=== PATIENT | female | born 1970 | race Caucasian/White ===

== ENCOUNTER 2020-01-11 09:22 | Emergency (ER) | payer BC ==
--- OUTSIDE RECORDS SUMMARY | 2020-01-11 09:29 | XMS REPORT | Continuity of Care Document ---
:1970 External Reference #:[id number] Author Name Genaro Fuller NP (transmitted by agent of provider Lotus Arndt) Address [address], [place] [address] Care Team Providers Name Role Phone Winsome Garcia MD - Pain Medicine Care Team Information Mucking Machine Operator [phone] Harika Moody MD - Internal Medicine Care Team Information Mucking Machine Operator [phone] Problems Active Problems Provider Date Migraine Will Hernandez M.D. Onset: 03/12/2017 Asthma Maddy Rivas NP Onset: 08/14/2017 Social History Type Date Description Comments Sex Unknown Tobacco Use Start: Unknown End: Former Cigarette Smoker Unknown Smoking Status Reviewed: 12/30/19 Former Cigarette Smoker ETOH Use Rarely consumes alcohol Tobacco Use Start: Unknown End: Patient is a former smoker Unknown Recreational Drug Use Denies Drug Use Exercise Type/Frequency Exercises sporadically Allergies, Adverse Reactions, Alerts Active Allergies Reaction Severity Comments Date Botox 12/30/2019 Inactive Allergies NKDA 03/12/2017 Medications Active Medications SIG Qnty Indications Ordering Date Provider Emgality inject 2 pens 2Syringe Will Sanabria 12/30/2019 120mg/ml for the first Irma Hernandez Solution Auto-Inject dose than 1 pen monthly (first dose will be 2 ml) Wellbutrin SR take two tablets 60tabs F32.9 Taqueriaofijael Roberts, 01/28/2019 150mg by mouth daily. OPTICAL GOODS DRILL OPERATOR Tablets ER 12HR Zolpidem Tartrate ER one every night 30tabs G47.00 Taqueriaofijael Roberts, 2017 at bedtime as OPTICAL GOODS DRILL OPERATOR 12.5mg Tablets ER needed insomnia Ondansetron 1 by mouth three 60tabs G43.119 Will Marquez. 06/06/2017 8mg Tablets times a day as Irma Hernandez Dispers needed nausea or headache Naproxen 1 twice a day as 60tabs G43.119 Will S. 03/12/2017 500mg Tablets needed for Irma Hernandez headache Clonazepam 1 by mouth twice 60tabs Zsofia Armando, 03/12/2017 0.5mg a day as needed OPTICAL GOODS DRILL OPERATOR Tablets Meclizine HCL 1 tablet every 8 30tabs Zsofia Armando, 25mg hours as needed OPTICAL GOODS DRILL OPERATOR Tablets for vertigo Cetirizine HCL 1 by mouth every Unknown 10mg day Tablets Centrum Silver once daily Unknown 50+Women 50+Women Tablets Progesterone one tablet by Unknown Micronized mouth every 100mg night at bedtime Capsules Estradiol 1 po daily Unknown 2mg Tablets Vitamin D3 Adult 1 every day Unknown Gummies 1000Unit Chewtabs Sertraline HCL 1 by mouth every 30tabs Zsofia Armando, 100mg day OPTICAL GOODS DRILL OPERATOR Tablets Gabapentin 2 tabs by mouth 180tabs Zsofia Armando, 600mg every day at OPTICAL GOODS DRILL OPERATOR Tablets bedtime Ventolin HFA 2 puffs by mouth 18units Zsofia Armando, four times a day OPTICAL GOODS DRILL OPERATOR 108(90Base) mcg/Act as needed Aerosol Advair Diskus 1 puff by mouth 60units Zsofia Armando, twice a day OPTICAL GOODS DRILL OPERATOR 250-50mcg/Dose Aerosol Montelukast Sodium 1 by mouth every 90tabs Zsofia Armando, 10mg day OPTICAL GOODS DRILL OPERATOR Tablets Sumatriptan Succinate take 1/2-1 by 18tabs G43.119 Zsofia Armando, mouth as need OPTICAL GOODS DRILL OPERATOR 100mg Tablets for migraine, may repeat after 2 hours, maximum 2 tablets in 24 hours, maximum 2 days a week. History Medications Emgality inject 2 pens 2Syringe G43.009 Will Sanabria 12/30/2019 - 120mg/ml for the first Irma Hernandez 12/30/2019 Solution dose than 1 pen Auto-Inject monthly (first dose will be 2 ml) Immunizations CPT Code Status Date Vaccine Reaction Lot # [id number] Given 01/28/2019 Tdap - shot tolerated well, no [id number] Tetanus/Diptheria/Acellular immediate reaction Pertussis [id number] Given 07/09/2018 Influenza Virus Vaccine, Quadrivalent, Split, Preservative Free Vital Signs Date Vital Result Comment 12/30/2019 10:06am Height 64 inches 5'4" Weight 178.00 lb Heart Rate 72 /min BP Systolic 142 mmHg BP Diastolic 84 mmHg BMI (Body Mass Index) 30.6 kg/m2 08/25/2019 8:56am Height 64 inches 5'4" Weight 178.25 lb Heart Rate 61 /min BP Systolic 123 mmHg BP Diastolic 76 mmHg Body Temperature 98.1 F O2 % BldC Oximetry 98 % BMI (Body Mass Index) 30.6 kg/m2 Results Test Acquired Date Facility Test Result H/L Range Note Basic Metabolic 12/10/2019 [facility] Sodium 137 mmol/L Normal 135-[address] [place] [address] [phone] Potassium 4.4 mmol/L Normal 3.5-5.0 Chloride 106 mmol/L Normal 101-111 Co2 Carbon Dioxide 27 mmol/L Normal 22-32 Anion Gap 4 mmol/L Normal 2-11 Glucose 125 mg/dL High 70-100 Blood Urea Nitrogen 9 mg/dL Normal 6-24 Creatinine 0.79 mg/dL Normal 0.51-0.95 BUN/Creatinine Ratio 11.4 Normal 8-20 Calcium 8.5 mg/dL Low 8.6-10.3 Egfr Non- 76.7 >60 Egfr 92.8 >60 1 Lipid Profile 12/10/2019 [facility] Triglycerides 58 mg/dL 2 (Trig/Chol/HDL) [address] [place] [address] [phone] Cholesterol 197 mg/dL 3 HDL Cholesterol 74.3 mg/dL 4 LDL Cholesterol 111 mg/dL 5 Laboratory test 11/29/2019 [facility] Clotest SEE RESULT [address] [place] [address] [phone] Surgical Pathology 11/29/2019 [facility] Surgical SEE RESULT [address] [place] [address] [phone] PDFReport SEE IMAGE 1 Because ethnic data is not always readily available, this report includes an eGFR for both -Americans and non- Americans. The National Kidney Disease Education Program (NKDEP) does not endorse the use of the MDRD equation for patients that are not between the ages of 18 and 70, are , have extremes of body size, muscle mass, or nutritional status, or are non- or non-. According to the National Kidney Foundation, irrespective of diagnosis, the stage of the disease is based on the level of kidney function: Stage Description GFR(mL/min/1.73 m(2)) 1 Kidney damage with normal or decreased GFR 90 2 Kidney damage with mild decrease in GFR 60-89 3 Moderate decrease in GFR 30-59 4 Severe decrease in GFR 15-29 5 Kidney failure <15 (or dialysis) 2 Desirable: <150 Borderline High: 150-199 High: 200-499 Very High: >500 3 Desirable: <200 Borderline High: 200-239 High: >239 4 Low: <40 Desirable: 40-60 High: >60 5 Desirable: <100 Near Optimal: 100-129 Borderline High: 130-159 High: 160-189 Very High: >189 6 SEE RESULT BELOW Name: CAROL ANN DEL REAL Terry : [address]: Marco Romero MD Acct: [id number] Unit: [id number] AGE: 49 Location: ENDO Re11/29/19 SEX: F Status: REG REF SPEC: [id number] ROSA: 11/29/19-[address]: Marco Romero MD REQ: [id number] RECD: 11/29/19 STATUS: COMP [facility] DR: Darlin Roberts AIRCRAFT TIME CLERK _ SOURCE: GAS ANTRUM SPDESC: ORDERED: Clotest Procedure Result Reported Site Clotest Final 11/30/19- 0728 ML Clotest Negative * ML - Main Lab . END OF REPORT DEPARTMENT OF PATHOLOGY, [address] [place] [address] Bernardino Warren M.D. Director [facility] # [id number] 7 SEE RESULT BELOW Name: CAROL ANN DEL REAL : [address]: Marco Romero MD Acct: [id number] Unit: [id number] AGE: 49 Location: ENDO Re11/29/19 SEX: F Status: REG REF SPEC: [id number] ROSA: 11/29/19-1408 [facility] DR: Marco Romero MD REQ: [id number] RECD: 11/29/19 STATUS: BEBETO TENA DR: Harika Moody MD _ ORDERED: LEVEL 4/3 FINAL DIAGNOSIS 1. Duodenum, biopsy: -- Benign small intestinal mucosa with no significant pathologic abnormalities. -- No evidence of villous blunting or increased intraepithelial lymphocytes. 2. Colon, cecum, biopsy: -- Tubular adenoma. -- No high grade dysplasia or malignancy. 3. Colon, at 25 cm, biopsy: -- Tubular adenoma. -- No high grade dysplasia or malignancy. CLINICAL HISTORY Nausea; family history of colon carcinoma POST-OPERATIVE DIAGNOSIS EGD: esophagus - normal; gastric - normal; duodenum - normal; colonoscopy: to cecum; at 25 cm - snare; at cecal biopsy CONTINUED ON NEXT PAGE DEPARTMENT OF PATHOLOGY, [address] [place] [address] Bernardino Warren M.D. Director [facility] # [id number] GROSS DESCRIPTION 1. The specimen is received in formalin labeled, Biopsy Duodenum, and consists of two quintanilla-pink irregular to polypoid soft tissue fragments measuring 0.5 x 0.3 x 0.2 cm and 0.6 x 0.3 by up to 0.3 cm, which are entirely submitted in one cassette. 2. The specimen is received in formalin labeled, Cecal Polyp, and consists of a 0.4 x 0.2 x 0.2 cm quintanilla-pink irregular to polypoid soft tissue fragment, which is entirely submitted in one cassette. 3. The specimen is received in formalin labeled, Polyp at 25 cm, and consists of a 0.5 x 0.4 x 0.3 cm quintanilla-pink irregular to polypoid soft tissue fragment, which is entirely submitted in one cassette. Signed by and Reported on: Jolanta Guzman MD 11/30/19 1117 END OF REPORT DEPARTMENT OF PATHOLOGY, [address] [place] [address] Bernardino Warren M.D. Director [facility] # [id number] Procedures Date Code Description Status 12/02/2019 43830504 Colonoscopy Completed 10/15/2018 977003299 Diabetic Retinal Eye Exam Completed 09/18/2018 [id number] Mammogram Completed 05/28/2016 26020908 Mammogram Completed 12/20/2015 22484493 Mammogram Completed 02/04/2014 32343705 Colonoscopy Completed Medical Devices Description No Information Available Encounters Type Date Location Provider Dx Diagnosis Office Visit 08/25/2019 Orthodontic Lab Technician Internal Darlin Roberts, Z00.00 Encntr for general 8:40a Medicine - [facility] OPTICAL GOODS DRILL OPERATOR adult medical exam w/o abnormal findings Z12.11 Encounter for screening for malignant neoplasm of colon G43.119 Migraine with aura, intractable, without status migrainosus G47.00 Insomnia, unspecified F41.1 Generalized anxiety disorder M54.2 Cervicalgia Assessments Date Code Description Provider 12/30/2019 G43.009 Migraine without aura, not intractable, without Genaro Fuller NP status migrainosus 12/30/2019 M54.2 Cervicalgia Genaro Fuller NP 12/30/2019 M54.81 Occipital neuralgia Genaro Fuller NP 08/25/2019 Z00.00 Encounter for general adult medical examination Zsofia Armando, OPTICAL GOODS DRILL OPERATOR without abnormal findings 08/25/2019 Z12.11 Encounter for screening for malignant neoplasm JANET RyanP of colon 08/25/2019 G43.119 Migraine with aura, intractable, without status NUVIA Ryan migrainosus 08/25/2019 G47.00 Insomnia, unspecified NUVIA Ryan 08/25/2019 F41.1 Generalized anxiety disorder NUVIA Ryan 08/25/2019 M54.2 Cervicalgia NUVIA Ryan Plan of Treatment Future Appointment(s):01/07/2020 2:00 pm - Genaro Fuller NP at [facility] Nlowrn2804/12/2020 2:00 pm - Aleyda Harrison MD at [facility] Uegyjcovame10/28/2020 1: 20 pm - NUVIA Ryan at [facility] Internal Medicine - [facility]cmob12/30/2019 - Genaro Fuller NPG43.009 Migraine without aura, not intractable, without status migrainosusNew Medication:Emgality 120 mg/ml - inject 2 pens for the first dose than 1 pen monthly (first dose will be 2 ml)Referral:No Doctor EoueoszbT34.2 CervicalgiaNew Xrays:MRI Cervical Spine Wo, Scheduled: 01/07/20M54.81 Occipital neuralgiaFollow up:Please schedule for an occipital nerve block. Functional Status Description No Information Available Mental Status Description No Information Available Referrals Refer to Reason for Referral Status Appt Date Created Marco Romero MD called & lm, no appt yet 08/31/19 Closed 10/13/[address] [place] [address] [phone]
--- OUTSIDE RECORDS SUMMARY | 2020-01-11 09:29 | XMS REPORT | Continuity of Care Document ---
:1970 External Reference #:[id number] Author Name Marco Romero MD Address [address] [place] [id number] Care Team Providers Name Role Phone Harika Moody M.D. Care Team Information Paper Machine Tender [phone] Problems Active Problems Provider Date Constipation Marco Romero MD Onset: 12/30/2013 Nausea Marco Romero MD Onset: 10/13/2019 Slow transit constipation Marco Romero MD Onset: 10/13/2019 Social History Type Date Description Comments Sex Unknown Tobacco Use Start: Unknown End: Unknown Patient is a former smoker Smoking Status Reviewed: 10/13/19 Patient is a former smoker Allergies, Adverse Reactions, Alerts Active Allergies Reaction Severity Comments Date Botox eye issues 10/13/2019 Inactive Allergies NKDA 12/30/2013 Medications Active Medications SIG Qnty Indications Ordering Date Provider Aimovig inject with one 140 3units G43.119 Will Hernandez 06/01/2019 140mg/ml mg auto-inject Daniele levy MD Solution Auto-Inject subcutaneous injection once a month Wellbutrin SR take two tablets by 60tabs F32.9 Darlin Roberts, 01/28/2019 150mg mouth daily. SCIENTIST Tablets ER 12HR Zolpidem Tartrate ER one every night at 30tabs G47.00 Harika Moody 2017 bedtime as needed M.D. 12.5mg Tablets ER insomnia Ondansetron 1 by mouth three 60tabs G43.119 Will Hernandez 06/06/2017 8mg times a day as MD Daniele Tablets Dispers needed nausea or headache Naproxen 1 twice a day as 60tabs G43.119 Will Hernandez 03/12/2017 500mg needed for headache MD Daniele Tablets Clonazepam 1 by mouth twice a 60tabs FransiscoMauriceHarika 03/12/2017 0.5mg day as needed M.D. Tablets Vitamin D3 Adult Unknown Gummies 25mcg (1000 Ut) Chewtabs Sumatriptan take 1/2-1 by mouth 18tabs G43.119 ArmandoTaqueriaofia, Succinate as need for SCIENTIST 100mg migraine, may Tablets repeat after 2 hours, maximum 2 tablets in 24 hours, maximum 2 days a week. Montelukast Sodium 1 by mouth every 90tabs Bin Sin, day 10mg Tablets Advair Diskus 1 puff by mouth 60units Armando, Zsofia, twice a day SCIENTIST 250-50mcg/Dose Aerosol Ventolin HFA 2 puffs by mouth 18units Armando, Zsofia, four times a day as SCIENTIST 108(90Base) mcg/Act needed Aerosol Gabapentin 2 tabs by mouth 180tabs Armando, Zsofia, 600mg every day at SCIENTIST Tablets bedtime Sertraline HCL 1 by mouth every 30tabs Armando, Zsofia, 100mg day SCIENTIST Tablets Estradiol 1 po daily Unknown 2mg Tablets Progesterone one tablet by mouth Unknown Micronized every night at 100mg bedtime Capsules Cetirizine HCL 1 by mouth every Unknown 10mg day Tablets Meclizine HCL 1 tablet every 8 30tabs Armando, Zsofia, 25mg hours as needed for SCIENTIST Tablets vertigo History Medications Colyte With Flavor by mouth as 4000ml K59.01 Marco Romero, 10/13/2019 - Packs directed 10/16/2019 240gm Solution Rec Immunizations CPT Code Status Date Vaccine Lot # [id number] Given 01/28/2019 Tetanus, Diphtheria Toxoids/Acellular Pertussis Vaccine 7 [place] > [id number] Given 07/09/2018 Influenza Virus Vaccine, Quadrivalent, Split, Preservative Free Vital Signs Date Vital Result Comment 10/13/2019 1:57pm Height 64 inches 5'4" Weight 177.00 lb BP Systolic 131 mmHg BP Diastolic 91 mmHg Heart Rate 69 /min BMI (Body Mass Index) 30.4 kg/m2 09/23/2019 1:01pm Height 64 inches 5'4" Weight 180.00 lb BMI (Body Mass Index) 30.9 kg/m2 Results Test Acquired Date Facility Test Result H/L Range Note [place] [facility] [place]ULT 1 finding BELOW Surgical Pathology 11/29/2019 [facility] [place] RESULT 2 Pathology BELOW PDFReport SEE IMAGE 1 SEE RESULT BELOW Name: YASMINE DEL REAL : [address]: Marco Romero MD Acct: [id number] Unit: [id number] AGE: 49 Location: ENDO Re11/29/19 SEX: F Status: REG REF SPEC: [id number] ROSA: 11/29/19-[address] [facility] [address]: Marco Romero MD REQ: [id number] RECD: 11/29/19-170 STATUS: KATY TENA DR: Darlin Roberts DIESEL SCOOP OPERATOR _ SOURCE: GAS ANTRUM SPDESC: ORDERED: Clotest Procedure Result Reported Site Clotest Final 11/30/19- 727 ML Clotest Negative * ML - Main Lab . END OF REPORT DEPARTMENT OF PATHOLOGY, [address] [place] [address] Bernardino Warren M.D. Director [facility] # [id number] SEE RESULT BELOW Name: YASMINE DEL REAL : [address]: Marco Romero MD Acct: [id number] Unit: [id number] AGE: 49 Location: ENDO Re11/29/19 SEX: F Status: REG REF SPEC: [id number] ROSA: 11/29/19-[address] [facility] [address]: Marco Romero MD REQ: [id number] RECD: 11/29/19 STATUS: KATY TENA DR: Darlin Roberts NP _ SOURCE: GAS ANTRUM SPDESC: ORDERED: Clotest Procedure Result Reported Site Clotest Final 11/30/19- 727 ML Clotest Negative * ML - Main Lab . END OF REPORT DEPARTMENT OF PATHOLOGY, [address] [place] [address] Bernardino Warren M.D. Director [facility] # [id number] 2 SEE RESULT BELOW Name: YASMINE DEL REAL : [address]: Marco Romero MD Acct: [id number] Unit: [id number] AGE: 49 Location: ENDO Re11/29/19 SEX: F Status: REG REF SPEC: [id number] ROSA: 11/29/19-[address]: Marco Romero MD REQ: [id number] RECD: 11/29/195633 STATUS: BEBETO TENA DR: Harika Moody MD [...] CONTINUED ON NEXT PAGE DEPARTMENT OF PATHOLOGY, [address] [place] [address] Bernardino Warren M.D. Director [facility] # [id number] GROSS DESCRIPTION 1. The specimen is received [...] 1117 END OF REPORT DEPARTMENT OF PATHOLOGY, [address] [place] [address] Bernardino Warren M.D. Director [facility] # [id number] SEE RESULT BELOW Name: YASMINE DEL REAL : [address]: Marco Romero MD Acct: [id number] Unit: [id number] AGE: 49 Location: ENDO Re11/29/19 SEX: F Status: REG REF SPEC: [id number] ROSA: 11/29/19-[address] [facility] [address]: Marco Romero MD REQ: [id number] RECD: 11/29/19 STATUS: BEBETO TENA DR: Harika [...] CONTINUED ON NEXT PAGE DEPARTMENT OF PATHOLOGY, [facility] [place] [address] Bernardino Warren M.D. Director [facility] # [id number] GROSS DESCRIPTION 1. The specimen is received [...] 1117 END OF REPORT DEPARTMENT OF PATHOLOGY, [facility] [place] [address] Bernardino Warren M.D. Director [facility] # [id number] SEE RESULT BELOW Name: YASMINE DEL REAL : [address]: Marco Romero MD Acct: [id number] Unit: [id number] AGE: 49 Location: ENDO Re11/29/19 SEX: F Status: REG REF SPEC: [id number] ROSA: 11/29/19-[address]: Marco Romero MD REQ: [id number] RECD: 11/29/19-1642 STATUS: BEBETO TENA DR: Harika Moody MD [...] CONTINUED ON NEXT PAGE DEPARTMENT OF PATHOLOGY, [address] [place] [address] Bernardino Warren M.D. Director [facility] # [id number] GROSS DESCRIPTION 1. The specimen is received [...] 1117 END OF REPORT DEPARTMENT OF PATHOLOGY, [address] [place] [address] Bernardino Warren M.D. Director [facility] # [id number] Procedures Description No Information Available Medical Devices Description No Information Available Encounters Type Date Location Provider Dx Diagnosis Office Visit 10/13/2019 Gastroenterology Marco Aguilar K59.01 Slow transit 2:15p [facility] Romero MD constipation R11.0 Nausea Assessments Date Code Description Provider 10/13/2019 K59.01 Slow transit constipation Marco Romero MD 10/13/2019 R11.0 Nausea Marco Romero MD Plan of Treatment 10/13/2019 - Marco Romero MDK59.01 Slow transit constipationNew Medication: Colyte With Flavor Packs 240 gm - by mouth as directedComments:RISKS AND BENEFITS OF THE PROCEDURE WERE DISCUSSED WITH PATIENT. I had a very long discussion with the patient regarding all of her symptoms we discussed potential causes of her constipation I wouldlike to perform a colonoscopy additionally I would like to perform an upper endoscopy given her nausea. We will biopsy for celiac and H. pylori she is understanding and fxnpabclqA45.0 NauseaComments:RISKS AND BENEFITS OF THE PROCEDURE WERE DISCUSSED WITH PATIENT. Functional Status Description No Information Available Mental Status Description No Information Available Referrals Description No Information Available
--- NOTE | 2020-01-11 12:03 | UC ---
General HPI - HPI Summary HPI Summary: 49 yo female c/o last 4 days + sore throat, hurts really badly to swallow, lucille Left side. Able to swallow (albeit painfu). No sob /cp Minimal cough. No rash. + ear congestion No fever /chills No GI / issues. Works in [email or web address] - History of Current Complaint Chief Complaint: UCGeneralIllness Stated Complaint: SORE THROAT Time Seen by Provider: 01/11/20 12:02 Hx Obtained From: Patient Hx Last Menstrual Period: 01/17/13 Pain Intensity: 8 - Allergy/Home Medications Allergies/Adverse Reactions: Allergies Allergy/AdvReac Type Severity Reaction Status Date / Time No Known Allergies Allergy Verified 01/11/20 09:46 Home Medications: Home Medications Gabapentin CAP(*) [Neurontin 300 CAP(*)] 2 tab PO BEDTIME 02/08/13 [History Confirmed 01/11/20] Montelukast Sodium TAB* [Singulair 10 MG TAB*] 10 mg PO BEDTIME 02/08/13 [ History Confirmed 01/11/20] Sertraline* [Zoloft*] 100 mg PO DAILY 02/08/13 [History Confirmed 01/11/20] clonazePAM TAB(*) [Klonopin TAB(*)] 0.5 mg PO BID 02/03/14 [History Confirmed ] Naproxen [Naprosyn 500 mg tab] 500 mg PO Q12HR PRN 04/24/18 [History Confirmed 01/11/20] Albuterol HFA INHALER* [Ventolin HFA Inhaler*] 2 puff INH Q6H PRN 11/18/19 [ History Confirmed 01/11/20] Cetirizine* [ZyrTEC 10 MG TAB*] 10 mg PO DAILY 11/18/19 [History Confirmed 01/10] Cholecalciferol TAB* [Vitamin D TAB*] 1,000 unit PO DAILY 11/18/19 [History Confirmed 01/11/20] Estradiol [Estrace] 2 mg PO DAILY 11/18/19 [History Confirmed 01/11/20] Fluticasone-Salmeterol 250-50* [Advair Diskus 250-50*] 1 puff INH BID 11/18/19 [ History Confirmed 01/11/20] Ibuprofen TAB* [Advil TAB*] 200 mg PO Q6H PRN 11/18/19 [History Confirmed ] Meclizine TAB* [Antivert 12.5 TAB*] 25 mg PO TID PRN 11/18/19 [History Confirmed 01/11/20] Progesterone, Micronized [Progesterone] 100 mg PO BEDTIME 11/18/19 [History Confirmed 01/11/20] Zolpidem Tartrate [Zolpidem Tartrate ER] 12.5 mg PO BEDTIME PRN 11/18/19 [ History Confirmed 01/11/20] Bupropion XL* [Wellbutrin XL *] 150 mg PO DAILY 11/29/19 [History Confirmed 08/22] PMH/Surg Hx/FS Hx/Imm Hx Previously Healthy: Yes Other History Of: Negative For: Anticoagulant Therapy - Surgical History Surgical History: Yes Surgery Procedure, Year, and Place: 1997, left breast fibroid removed age 17, Left forearm rheumatoid nodule removed, Left knee NODULES REMOVED. stereotatic breast bx left - Family History Known Family History: Positive: Hypertension - Social History Alcohol Use: None Substance Use Type: None Smoking Status (MU): Former Smoker Have You Smoked in the Last Year: No Review of Systems All Other Systems Reviewed And Are Negative: Yes Constitutional: Positive: Fatigue Skin: Positive: Negative Eyes: Positive: Negative ENT: Positive: Other - see hpi Respiratory: Positive: Negative Cardiovascular: Positive: Negative Gastrointestinal: Positive: Negative Genitourinary: Positive: Negative Motor: Positive: Negative Neurovascular: Positive: Negative Musculoskeletal: Positive: Negative Neurological/Mental Status: Positive: Negative Psychological: Positive: Negative Is Patient Immunocompromised?: No Physical Exam Triage Information Reviewed: Yes Appearance: Well-Nourished - sitting up, looks tired, but nad Vital Signs: Initial Vital Signs Temp 98.2 F 01/11/20 09:43 Pulse 74 01/11/20 09:43 Resp 17 01/11/20 09:43 BP 125/71 01/11/20 09:43 Pulse Ox 100 01/11/20 09:43 Vital Signs Reviewed: Yes Eye Exam: Normal ENT: Positive: Pharyngeal erythema - Post pharynx and bilat tonsillar redness and swelling. L tonsil > R tonsil. without significant adenopathy Neck nontender trachea midline, TM dull - TM dull, ware au Neck exam: Normal - see above Respiratory Exam: Normal Respiratory: Positive: Chest non-tender, Lungs clear, Normal breath sounds, No respiratory distress, No accessory muscle use Cardiovascular Exam: Normal Cardiovascular: Positive: RRR, Pulses Normal, Brisk Capillary Refill Abdominal Exam: Normal Abdomen Description: Positive: Nontender Musculoskeletal Exam: Normal Musculoskeletal: Positive: ROM Intact Neurological Exam: Normal - grossly nonfocal Psychological Exam: Normal - nad Skin Exam: Normal - nondiaphoretic no visible or reported rash Course/Dx - Course Course Of Treatment: RST neg Reviewed coa / tx plan. Questions as posed answered to the best of my ability. - Diagnoses Provider Diagnosis: Pharyngotonsillitis Discharge ED - Sign-Out/Discharge Documenting (check all that apply): Patient Departure All imaging exams completed and their final reports reviewed: No Studies - Discharge Plan Condition: Stable Disposition: HOME Patient Education Materials: Tonsillitis (ED), Pharyngitis (ED) Forms: *Work Release Referrals: Darlin Roberts NP [Primary Care Provider] - - Billing Disposition and Condition Condition: STABLE Disposition: Home
[2020-01-11 12:22] VITALS: BP 142/76
== END 2020-01-11 12:51 | disposition home or self-care (01) ==
LOC: UCEAST 09:22
DX: J03.90 Acute tonsillitis, unspecified (principal); J02.9 Acute pharyngitis, unspecified; Z87.891 Personal history of nicotine dependence
CPT/HCPCS: 87651; 99212; G0463